=== PATIENT | male | born 1980 | race Caucasian/White ===

== ENCOUNTER 2019-03-24 12:36 | Emergency (ER) | payer OTHER, MEDICAID ==
[~2019-03-24] VITALS: Ht 175.3 cm; Wt 88.5 kg
[~2019-03-24 12:36] MED LIST: DIVA500T4 PO
[2019-03-24 12:49] VITALS: BP_SYST 127
[2019-03-24] MEDS ORDERED: KETOROLAC TROMETHAMINE 60 MG/2 ML VIAL IM ONE (13:30)
[2019-03-24 14:42] VITALS: BP_SYST 127
== END 2019-03-24 14:40 | disposition home or self-care (01) ==
LOC: SED 12:36
DX: M25.562 Pain in left knee (principal); R03.0 Elevated blood-pressure reading, without diagnosis of hypertension; Z88.8 Allergy status to other drugs, medicaments and biological substances; W19.XXXA Unspecified fall, initial encounter; Y93.89 Activity, other specified; Y92.89 Other specified places as the place of occurrence of the external cause; Y99.8 Other external cause status
CPT/HCPCS: 29505; 73564; 73610; 96372; 99283; J1885

== ENCOUNTER 2020-09-10 12:45 | Emergency (ER) | payer OTHER, MEDICAID ==
[~2020-09-10] VITALS: Ht 177.8 cm; Wt 81.6 kg
[2020-09-10 12:45] VITALS: BP_SYST 152
[2020-09-10] MEDS ORDERED: methylPREDNISolone SOD SUCC/PF 62.5 MG/ML VIAL IVP ONE (13:00)
[2020-09-10] MEDS ORDERED: DIPHENHYDRAMINE INJ 50 MG/ML VIAL IVP ONE (13:00)
[2020-09-10] MEDS ORDERED: FAMOTIDINE PF 20 MG/2 ML VIAL IVP ONE (13:00)
[2020-09-10 14:55] VITALS: BP_SYST 154
== END 2020-09-10 14:55 | disposition home or self-care (01) ==
LOC: SED 12:45
DX: T78.49XA Other allergy, initial encounter (principal); G40.909 Epilepsy, unspecified, not intractable, without status epilepticus; Z88.8 Allergy status to other drugs, medicaments and biological substances; W57.XXXA Bitten or stung by nonvenomous insect and other nonvenomous arthropods, initial encounter
CPT/HCPCS: 96374; 96375; 99284; J2930; J3490

== ENCOUNTER 2021-11-24 10:10 | Emergency (ER) | payer OTHER, MEDICAID, SELFPAY ==
[~2021-11-24] VITALS: Ht 175.3 cm; Wt 81.6 kg
[2021-11-24 10:20] VITALS: BP_SYST 149
--- NOTE | 2021-11-24 10:20 | NUR ---
Pt. bib fiance with c/o abd. pain, back pain and diarrhea X 3 days, triaged in tent
--- NOTE | 2021-11-24 10:49 | NUR ---
ER in tent examining patient.
[2021-11-24 11:38] LABS: BASOPHILS % (AUTO) 0.4 % (0.0-2.0); EOSINOPHILS % (AUTO) 0.3 % (0.0-4.0); HEMATOCRIT 44.3 % (36-54); HEMOGLOBIN 14.9 g/dL (14.0-18.0); LYMPHOCYTES # (AUTO) 1.4 K/uL (1.0-5.5); LYMPHOCYTES % (AUTO) 19.2 % (20.5-51.5); MEAN CORPUSCULAR HEMOGLOBIN 30 pg (27-31); MEAN CORPUSCULAR HGB CONC 34 % (32-36); MEAN CORPUSCULAR VOLUME 90 fL (79.0-98.0); MONOCYTES # (AUTO) 0.7 K/uL (0.0-1.0); MONOCYTES % (AUTO) 9.9 % (1.7-9.3); NEUTROPHILS % (AUTO) 70.2 % (40.0-70.0); PLATELET COUNT (AUTO) 202 K/uL (130-430); RED BLOOD CELL COUNT(AUTO) 4.95 MIL/uL (4.2-6.2); RED CELL DISTRIBUTION WIDTH 12.6 % (9.0-15.0); WHITE BLOOD COUNT (AUTO) 7.1 K/uL (4.8-10.8)
[2021-11-24 12:25] LABS: ANION GAP 12 (5-15); CALCIUM 8.4 mg/dL (8.4-11.0); CHLORIDE 105 mmol/L (98-107); CREATININE 0.76 mg/dL (0.55-1.30); GLUCOSE 107 mg/dL (70-99); POTASSIUM 3.8 mmol/L (3.5-5.1); SODIUM SERUM 140 mmol/L (136-145); UREA NITROGEN, BLOOD 9 mg/dL (8-21)
[2021-11-24 12:29] LABS: ALANINE AMINOTRANSFERASE 29 U/L (12-78); ALBUMIN 3.1 g/dL (3.4-4.8); AMYLASE 75 U/L (0-100); ASPARTATE AMINOTRANSFERASE 20 U/L (10-37); C-REACTIVE PROTEIN QUANT 3.8 mg/dL (0-0.5); LIPASE 52 U/L (73-393); TOTAL BILIRUBIN 0.3 mg/dL (0.0-1.0)
[2021-11-24 12:46] LABS: GFR AFRICAN AMERICAN 147 mL/min (>90)
[2021-11-24 13:05] LABS: ACETONE, SERUM NEGATIVE (NEGATIVE)
--- NOTE | 2021-11-24 13:16 | NUR ---
pt. c/o pain Dr. Macedo notified no orders for pain med yet
[2021-11-24] MEDS ORDERED: HYDR-3917 PO (13:33)
[2021-11-24] MEDS ORDERED: IBUP-1971 PO (13:33)
[2021-11-24] MEDS ORDERED: HYDROcodone/ACETAMIN 10-325 MG TAB PO ONE (13:45)
[2021-11-24] MEDS ORDERED: KETOROLAC TROMETHAMINE 60 MG/2 ML VIAL IM ONE (13:45)
[2021-11-24 14:17] VITALS: BP_SYST 117
--- NOTE | 2021-11-24 14:18 | NUR ---
Patient given written and verbal discharge instructions and verbalizes understanding. ER discussed with patient the results and treatment provided. Patient in stable condition. ID arm band removed. Rx of [place] and Motrin given. Patient educated on pain management and to follow up with PMD. Pain Scale 1. Opportunity for questions provided and answered. Medication side effect fact sheet provided.
== END 2021-11-24 14:18 | disposition home or self-care (01) ==
LOC: SED 10:10
DX: K52.9 Noninfective gastroenteritis and colitis, unspecified (principal); Z88.8 Allergy status to other drugs, medicaments and biological substances; Z79.899 Other long term (current) drug therapy
CPT/HCPCS: 36415; 74176; 76376; 80053; 81002; 82009; 82150; 83605; 83690; 85025; 86140; 96372; 99284; J1885